=== PATIENT | male | born 1955 | race Caucasian/White ===

== ENCOUNTER 2017-12-27 08:07 | Inpatient (IN) | payer OTHER ==
[~2017-12-27] VITALS: Ht 160 cm; Wt 88.9 kg
[~2017-12-27 08:07] MED LIST: DICL75TA PO; LUBI24CA5 PO; OMEP40CA37 PO; TEST200V3 IM
[2017-12-27] MEDS ORDERED: ACETAMINOPHEN ES 500 MG TABLET ONE (08:23)
[2017-12-27] MEDS ORDERED: ACETAMINOPHEN ES 500 MG TABLET PO ONE (08:30)
[2017-12-27] MEDS ORDERED: IV NS 0.9% 500 ML BAG IV ONE (08:30)
[2017-12-27] MEDS ORDERED: ASPIRIN 325 MG TABLET PO ONE (08:30)
[2017-12-27 08:33] LABS: ABG BASE EXCESS 3.9 mmol/L; ABG OXYGEN SATURATION 91.8 % (92.0-98.5); ABG PCO2 42.5 mmHg (35.0-45.0); ABG PH 7.443 (7.350-7.450); ABG PO2 62.9 mmHg (75.0-100.0); AaDO2 35.9 mmHg; COHb 1.3 % (0.5-1.5); MetHb 0.5 % (0.0-1.5); O2Hb 90.1 % (94.0-97.0); SITE, ABG Left Radial; VENT MODE, BG RA
--- NOTE | 2017-12-27 08:35 | NUR ---
RT AT FOR ABG.
--- NOTE | 2017-12-27 08:40 | NUR ---
MD AT FOR EVAL. ORDERED PT TO BE ON OXYGEN VIA NC.
--- NOTE | 2017-12-27 08:46 | NUR ---
IV ACCESS STARTED. BLOOD DRAWN FOR LABS. MEDICATED ORDERED. LEFT URINAL AT BS FOR PT USE.
[2017-12-27] MEDS ORDERED: ASPIRIN 325 MG TABLET ONE (08:48)
[2017-12-27 08:51] LABS: BASOPHILS # (AUTO) 0.1 /CMM (0.0-0.2); BASOPHILS % (AUTO) 1.1 % (0.0-2.0); EOSINOPHILS % (AUTO) 2.1 % (0.0-6.0); HEMATOCRIT 42 % (39-51); HEMOGLOBIN 13.5 g/dL (13.5-17.5); LYMPHOCYTES # (AUTO) 0.7 /CMM (0.8-4.8); LYMPHOCYTES % (AUTO) 8.9 % (20.0-44.0); MEAN CORPUSCULAR HEMOGLOBIN 29 PG (26.0-33.0); MEAN CORPUSCULAR HGB CONC 33 g/dl (31.0-36.0); MEAN CORPUSCULAR VOLUME 90 fL (80-96); MONOCYTES # (AUTO) 0.4 /CMM (0.1-1.30); MONOCYTES % (AUTO) 5.1 % (2.0-12.0); NEUTROPHILS # (AUTO) 6.2 /CMM (1.8-8.9); NEUTROPHILS % (AUTO) 82.8 % (43.0-81.0); PLATELET COUNT (AUTO) 211 /CMM (150-450); RDW COEFFICIENT OF VARIATION 28.8 (11.5-15.0); RED BLOOD CELL COUNT(AUTO) 4.62 MIL/uL (4.5-6.0); WHITE BLOOD COUNT (AUTO) 7.5 K/uL (4.3-11.0)
[2017-12-27 08:55] LABS: CALCIUM, SERUM 9.3 mg/dL (8.5-10.1); CREATININE 1.1 mg/dL (0.6-1.3); POTASSIUM 3.5 mmol/L (3.5-5.1)
--- NOTE | 2017-12-27 08:55 | NUR ---
PT TAKEN TO CT.
[2017-12-27 09:00] LABS: ALBUMIN 3.6 g/dL (3.4-5.0); BILIRUBIN,DIRECT 0.3 mg/dL (0.0-0.2); BILIRUBIN,TOTAL 0.9 mg/dL (0.2-1.0); TOTAL PROTEIN, SERUM 7.8 g/dL (6.4-8.2)
[2017-12-27 09:09] LABS: TROPONIN I 0.023 ng/mL (0.00-0.056)
--- NOTE | 2017-12-27 09:23 | NUR ---
[facility] PAGED
[2017-12-27] MEDS ORDERED: OXYC-128 PO (09:44)
[2017-12-27] MEDS ORDERED: OXYC5CAP18 PO (09:44)
[2017-12-27] MEDS ORDERED: ZOLP5TAB2 PO (09:44)
[2017-12-27] MEDS ORDERED: FURO-144 PO (09:44)
[2017-12-27] MEDS ORDERED: METO5TAB7 PO (09:44)
[2017-12-27] MEDS ORDERED: DOCU-270 PO (09:44)
[2017-12-27] MEDS ORDERED: PANT40TA2 PO (09:44)
[2017-12-27] MEDS ORDERED: METH500T PO (09:45)
--- NOTE | 2017-12-27 10:20 | NUR ---
REPORT GIVEN TO MIMA BECERRA FOR TELE [phone].
[2017-12-27 10:45] VITALS: BP 133/70
[2017-12-27] MEDS ORDERED: HYDROCODONE/APAP 5/325MG 1 EACH TABLET PO PRN (11:00)
[2017-12-27] MEDS ORDERED: MAG HYDROX/AL HYDROX/SIMETH 30 ML UDC PO PRN (11:00)
[2017-12-27] MEDS ORDERED: Z GUARD REMEDY 2 OZ OINT TP PRN (11:00)
[2017-12-27] MEDS ORDERED: MAGNESIUM HYDROXIDE 30 ML UDC PO PRN (11:00)
[2017-12-27] MEDS ORDERED: ZOLPIDEM TARTRATE 5 MG TABLET PO PRN (11:00)
[2017-12-27] MEDS ORDERED: ACETAMINOPHEN 325 MG TABLET PO PRN (11:00)
[2017-12-27] MEDS ORDERED: ONDANSETRON HCL/PF 4 MG/2 ML VIAL IVP PRN (11:00)
[2017-12-27 12:00] VITALS: BP 129/70
--- NOTE | 2017-12-27 12:39 | NUR ---
HERNAN NOTES/ORTHOSTATIC BP LYING 129/70 HR 68 SITTING 142/76 HR 59 STANDING UNABLE PT UNSTEADY GAIT, UNABLE TO STAND LONG ENOUGH FOR BP TO BE TAKEN Addendum: 12/27/17 at 1241 by MIMA NEWSOME RN Amended: Links added.
[2017-12-27 13:32] LABS: THYROID STIMULATING HORMONE 0.923 uIU/mL (0.358-3.74)
--- NOTE | 2017-12-27 13:45 | NUR ---
RN NOTES/ADMITTING RN NOTES PATIENT RECEIVED FROM ER VIA GURNEY, AWAKE ALERT AND VERBALLY RESPONSIVE, ABLE TO STATE FULL NAME AND DATE OF , KNOWN HE IS IN THE HOSPITAL, AND ABLE TO TELL THE TIME, NOTED WITH FORGETFULNESS. RESPIRATIONS EVEN AND UNLABORED, OXYGEN VIA NC 2LPM PRN FOR EASE OF BREATHING. DENIES ANY PAIN OR DISCOMFORT. DR. CONWAY AWARE PT IS IN UNIT, WILL CARRY OUT ADMITTING ORDERS. IV ACCESS TO RFA 20G PATENT AND INTACT NO REDNESS OR INFILTRATION NOTED. NOTED WITH UNEQUAL PUPILS, AWARE. ORIENTED PT TO ROOM AND UNIT AND USE OF CALL LIGHT AND TO CALL WHEN ASSISTANCE IS NEEDED, WILL CONTINUE TO MONITOR
--- NOTE | 2017-12-27 14:30 | NUR ---
RN NOTES/MD VISIT SEEN AND EXAMINED BY DR. CONWAY NOTIFIED OF UNEQUAL PUPILS, PER MD PT HAVING HYDROCEPHALUS AND WILL HAVE NEURO CONSULT,MD WILL INFORM DR. WU. PT WITH EQUAL STRENGTH TO [place], WILL HAVE PT AND OT EVALS, WILL CONTINUE TO MONITOR
[2017-12-27 16:00] VITALS: BP 136/83
[2017-12-27] MEDS: DOCUSATE SODIUM 100 MG CAPSULE PO SCH (16:37)
[2017-12-27] MEDS: oxyCODONE IR immediate release 5 MG PO SCH (16:38)
[2017-12-27] MEDS: DICLOFENAC SODIUM 25 MG TABLET.DR PO SCH (16:38)
[2017-12-27] MEDS: METHOCARBAMOL (500MG) 500 MG TABLET PO SCH (16:40)
[2017-12-27] MEDS: IV NS 0.9% 1,000 ML IV PRN (17:50)
--- NOTE | 2017-12-27 18:59 | NUR ---
RN CLOSING NOTES PATIENT AWAKE ALERT AND VERBALLY RESPONSIVE, ABLE TO STATE FULL NAME AND DATE OF , KNOWN HE IS IN THE HOSPITAL, AND ABLE TO TELL THE TIME, NOTED WITH FORGETFULNESS. RESPIRATIONS EVEN AND UNLABORED, OXYGEN VIA NC 2LPM PRN FOR EASE OF BREATHING. DENIES ANY PAIN OR DISCOMFORT.IV ACCESS TO RFA 20G PATENT AND INTACT NO REDNESS OR INFILTRATION NOTED. NOTED WITH UNEQUAL PUPILS, MD AWARE. ORIENTED PT TO ROOM AND UNIT AND USE OF CALL LIGHT AND TO CALL WHEN ASSISTANCE IS NEEDED, WILL CONTINUE TO MONITOR AND ENDORSE TO NEXT SHIFT FOR CONTINUITY OF CARE
[2017-12-27 19:28] VITALS: BP 126/73
--- NOTE | 2017-12-27 19:30 | NUR ---
RN NOTES RECEIVED PT. AWAKE ON BED, A/OX2-3, SR WITH BBB ON TELE MONITOR HR-81, DENIES PAIN, NO SOB, CALL LIGHT WITHIN REACH, [id number], CONTINUE TO MONITOR
[2017-12-27] MEDS: ALBUTEROL FS 2.5 MG/3 ML VIAL.NEB NEB SCH (20:47)
[2017-12-28] MEDS: ALBUTEROL FS 2.5 MG/3 ML VIAL.NEB NEB SCH ×4 (01:40→19:14)
[2017-12-28 04:49] VITALS: BP 132/80
[2017-12-28 06:11] VITALS: BP_SYST 121; BP_SYST 129; BP_DIAS 75; BP_DIAS 81
[2017-12-28 06:31] LABS: BASOPHILS % (AUTO) 0.4 % (0.0-2.0); EOSINOPHILS % (AUTO) 5.3 % (0.0-6.0); HEMATOCRIT 37 % (39-51); HEMOGLOBIN 12.3 g/dL (13.5-17.5); LYMPHOCYTES # (AUTO) 0.9 /CMM (0.8-4.8); LYMPHOCYTES % (AUTO) 11.8 % (20.0-44.0); MEAN CORPUSCULAR HEMOGLOBIN 30 PG (26.0-33.0); MEAN CORPUSCULAR HGB CONC 33 g/dl (31.0-36.0); MEAN CORPUSCULAR VOLUME 90 fL (80-96); MONOCYTES # (AUTO) 0.7 /CMM (0.1-1.30); NEUTROPHILS # (AUTO) 5.2 /CMM (1.8-8.9); NEUTROPHILS % (AUTO) 72.5 % (43.0-81.0); PLATELET COUNT (AUTO) 202 /CMM (150-450); RDW COEFFICIENT OF VARIATION 28.6 (11.5-15.0); RED BLOOD CELL COUNT(AUTO) 4.14 MIL/uL (4.5-6.0); WHITE BLOOD COUNT (AUTO) 7.2 K/uL (4.3-11.0)
--- NOTE | 2017-12-28 06:42 | NUR ---
RN NOTES AWAKE, DENIES PAIN, MORNING CARE RENDERED, PT. NEEDS ATTENDED
[2017-12-28 06:47] LABS: CALCIUM, SERUM 8.6 mg/dL (8.5-10.1); CREATININE 1.2 mg/dL (0.6-1.3); MAGNESIUM 1.6 mg/dL (1.8-2.4); PHOSPHORUS 3.5 mg/dL (2.5-4.9); POTASSIUM 3.3 mmol/L (3.5-5.1)
[2017-12-28] MEDS: IV NS 0.9% 1,000 ML IV PRN (07:00)
--- NOTE | 2017-12-28 07:36 | NUR ---
RN OPENING NOTES PATIENT AWAKE ALERT AND VERBALLY RESPONSIVE, ABLE TO MAKE NEEDS KNOWN, NOTED WITH FORGETFULNESS. RESPIRATIONS EVEN AND UNLABORED, OXYGEN VIA NC 2LPM PRN FOR EASE OF BREATHING. DENIES ANY PAIN OR DISCOMFORT.IV ACCESS TO RFA 20G PATENT AND INTACT NO REDNESS OR INFILTRATION NOTED. NOTED WITH UNEQUAL PUPILS, MD AWARE. ORIENTED PT TO ROOM AND UNIT AND USE OF CALL LIGHT AND TO CALL WHEN ASSISTANCE IS NEEDED, WILL CONTINUE TO MONITOR
[2017-12-28 08:00] VITALS: BP 133/75
[2017-12-28] MEDS: oxyCODONE IR immediate release 5 MG PO SCH ×2 (08:15→16:24)
[2017-12-28] MEDS: FUROSEMIDE 40 MG TABLET PO SCH (08:15)
[2017-12-28] MEDS: METHOCARBAMOL (500MG) 500 MG TABLET PO SCH ×2 (08:15→16:23)
[2017-12-28] MEDS: DOCUSATE SODIUM 100 MG CAPSULE PO SCH ×2 (08:15→16:23)
[2017-12-28] MEDS: PANTOPRAZOLE 40 MG TABLET.DR PO SCH (08:15)
[2017-12-28] MEDS: DICLOFENAC SODIUM 25 MG TABLET.DR PO SCH ×2 (08:19→16:23)
[2017-12-28 08:54] VITALS: BP 133/75
[2017-12-28] MEDS ORDERED: POTASSIUM CHLORIDE 20 MEQ TAB.PRT.SR PO SCH (10:30)
[2017-12-28 10:56] LABS: APPEARANCE,URINE CLEAR (CLEAR); BILIRUBIN,URINE NEGATIVE (NEGATIVE); BLOOD, URINE 2+ Ery/uL (NEGATIVE); COLOR,URINE YELLOW (YELLOW); KETONES,URINE NEGATIVE (NEGATIVE); LEUKOCYTE ESTERASE ,URINE NEGATIVE (NEGATIVE); NITRITE, URINE NEGATIVE (NEGATIVE); PROTEIN,URINE NEGATIVE (NEGATIVE); UGLUCOSE NEGATIVE (NEGATIVE)
[2017-12-28 11:12] LABS: BACTERIA,URINE Rare /HPF (None Seen); WBC,URINE 0-2 /HPF (0-3)
[2017-12-28 11:13] LABS: SQUAMOUS EPITHELIAL CELL,UR Rare /HPF (None Seen)
--- NOTE | 2017-12-28 13:16 | NUR ---
RN NOTES PT REFUSING [facility] AT THIS TIME WANTS TO TAKE "LATER" WILL OFFER AGAIN AND CONTINUE TO MONITOR
[2017-12-28] MEDS: Magnesium 1GM/D5W 100ML PREMIX 100 ML IV SCH ×2 (13:23→16:23)
[2017-12-28] MEDS ORDERED: GADODIAMIDE 5 MMOL/10 ML VIAL IJ ONE (13:30)
[2017-12-28] MEDS ORDERED: POTASSIUM CHLORIDE 20 MEQ TAB.PRT.SR PO ONE (13:30)
[2017-12-28] MEDS: SOD FERRIC GLUC 125 MG in IV NS 0.9% 100 ML IV SCH (15:09)
--- NOTE | 2017-12-28 15:35 | NUR ---
RN NOTES/MRI BRAIN PER RADIOLOGIST PT WITH COMMUNICATING HYDROCEPHALUS MADE DR. CONWAY UNABLE TO CONTACT DR. WU, DR. CONWAY AWARE,NO NEW ORDERS AT THIS TIME WILL CONTINUE TO MONITOR
[2017-12-28 16:00] VITALS: BP 144/83
--- NOTE | 2017-12-28 18:55 | NUR ---
RN CLOSING NOTES PATIENT AWAKE ALERT AND VERBALLY RESPONSIVE, ABLE TO MAKE NEEDS KNOWN, NOTED WITH FORGETFULNESS. RESPIRATIONS EVEN AND UNLABORED, OXYGEN VIA NC 2LPM PRN FOR EASE OF BREATHING. DENIES ANY PAIN OR DISCOMFORT.IV ACCESS TO RFA 20G PATENT AND INTACT NO REDNESS OR INFILTRATION NOTED. NOTED WITH UNEQUAL PUPILS,NEUROLOGIST AND MD AWARE. ORIENTED PT TO ROOM AND UNIT AND USE OF CALL LIGHT AND TO CALL WHEN ASSISTANCE IS NEEDED, WILL CONTINUE TO MONITOR AND ENDORSE TO NEXT SHIFT FOR CONTINUITY OF CARE
--- NOTE | 2017-12-28 19:32 | NUR ---
MS RN OPENING NOTES RECEIVED PT AWAKE ALERT X 2-3 WITH INTERMITTENT CONFUSION PER AM RN REPORT. VERBALLY RESPONSIVE, ABLE TO MAKE NEEDS KNOWN, NOTED WITH FORGETFULNESS. RESPIRATIONS EVEN AND UNLABORED, OXYGEN VIA NC 2LPM PRN FOR EASE OF BREATHING. DENIES ANY PAIN OR DISCOMFORT. IV ACCESS TO RAC, PATENT AND INTACT, RUNNING WITH IVF ORDERED. NOTED WITH UNEQUAL PUPILS, MD AWARE. ORIENTED PT TO ROOM AND UNIT AND USE OF CALL LIGHT AND TO CALL WHEN ASSISTANCE IS NEEDED, VERBALIZED UNDERSTANDING @ THIS TIME. BED ALARM ON. WILL CONTINUE TO MONITOR CLOSELY.
[2017-12-28 20:00] VITALS: BP 141/85
--- NOTE | 2017-12-28 21:00 | NUR ---
Met with patient,he is lethargic and confused, unable to follow interaction. location manager found patient's mother phone number on his contact list. Spoke with patient mother Verenice [phone], stated patient lives in an apartment with roommates. Prior to admission, he was ambulatory and was driving. Mother not aware of any DME at home. His mother stated that she will be unable to take care of the patient and has no other support at home. Awaiting MRI brain to r/o CVA. Patient might need SNF placement when discharge. Addendum: 12/28/17 at 2101 by MICAH GARNER RN Amended: Links added.
[2017-12-29] MEDS: IV NS 0.9% 1,000 ML IV PRN ×2 (00:08→18:50)
[2017-12-29] MEDS: ALBUTEROL FS 2.5 MG/3 ML VIAL.NEB NEB SCH ×4 (00:35→19:10)
--- NOTE | 2017-12-29 02:11 | NUR ---
MS RN NOTE PT NOTED TO BE SLEEPING COMFORTABLY @ THIS TIME. NO MEL NOTED. ON O2 @ 2 LPM VIA NC. MONITORING CLOSELY.
[2017-12-29 06:00] LABS: BASOPHILS % (AUTO) 0.2 % (0.0-2.0); EOSINOPHILS % (AUTO) 4.1 % (0.0-6.0); HEMATOCRIT 38 % (39-51); HEMOGLOBIN 12.6 g/dL (13.5-17.5); LYMPHOCYTES # (AUTO) 0.6 /CMM (0.8-4.8); LYMPHOCYTES % (AUTO) 8.1 % (20.0-44.0); MEAN CORPUSCULAR HEMOGLOBIN 30 PG (26.0-33.0); MEAN CORPUSCULAR HGB CONC 33 g/dl (31.0-36.0); MEAN CORPUSCULAR VOLUME 90 fL (80-96); MONOCYTES # (AUTO) 0.7 /CMM (0.1-1.30); MONOCYTES % (AUTO) 9.2 % (2.0-12.0); NEUTROPHILS # (AUTO) 6.2 /CMM (1.8-8.9); NEUTROPHILS % (AUTO) 78.4 % (43.0-81.0); PLATELET COUNT (AUTO) 215 /CMM (150-450); RDW COEFFICIENT OF VARIATION 28.6 (11.5-15.0); RED BLOOD CELL COUNT(AUTO) 4.25 MIL/uL (4.5-6.0); WHITE BLOOD COUNT (AUTO) 7.9 K/uL (4.3-11.0)
[2017-12-29 06:19] LABS: CALCIUM, SERUM 8.5 mg/dL (8.5-10.1); CREATININE 1.2 mg/dL (0.6-1.3); MAGNESIUM 1.8 mg/dL (1.8-2.4); PHOSPHORUS 3.5 mg/dL (2.5-4.9); POTASSIUM 3.5 mmol/L (3.5-5.1)
--- NOTE | 2017-12-29 06:35 | NUR ---
MS RN CLOSING NOTES PT SLEPT WELL @ NIGHT, A & O X 2-3, VERBALLY RESPONSIVE. NOTED WITH FORGETFULNESS. RESP EVEN AND UNLABORED, OXYGEN VIA NC 2LPM PRN FOR EASE OF BREATHING. NO S/S OF PAIN NOTED. IV ACCESS TO RAC, PATENT AND INTACT, RUNNING WITH IVF ORDERED. SAFETY MEASURES IN PLACE. NO MEL NOTED. BED ALARM ON. CALL LIGHT WITHIN REACH. WILL ENDORSE TO AM RN FOR CONTINUITY OF CARE.
--- NOTE | 2017-12-29 07:10 | NUR ---
MS RN NOTES PATIENT IN BED EYES CLOSED, AROUSABLE, RESPONSIVE TO VERBAL AND TACTILE STIMULI, NO ACUTE DISTRESS NOTED. BREATHING UNLABORED. NO SOB NOTED. DENIED ANY PAIN, NO FACIAL GRIMACING NOTED. IV ACCESS PATENT AND INTACT, NO REDNESS OR SWELLING NOTED. SAFETY MEASURES IN PLACE. CALL LIGHT WITHIN REACH. WILL CONTINUE TO MONITOR ACCORDINGLY.
[2017-12-29 08:00] VITALS: BP 133/74
[2017-12-29] MEDS: FUROSEMIDE 40 MG TABLET PO SCH (08:24)
[2017-12-29] MEDS: METHOCARBAMOL (500MG) 500 MG TABLET PO SCH ×2 (08:24→17:38)
[2017-12-29] MEDS: PANTOPRAZOLE 40 MG TABLET.DR PO SCH (08:24)
[2017-12-29] MEDS: DOCUSATE SODIUM 100 MG CAPSULE PO SCH ×2 (08:24→17:38)
[2017-12-29] MEDS: DICLOFENAC SODIUM 25 MG TABLET.DR PO SCH ×2 (08:26→17:38)
[2017-12-29] MEDS: oxyCODONE IR immediate release 5 MG PO SCH ×2 (08:52→17:00)
--- NOTE | 2017-12-29 09:59 | NUR ---
MS RN NOTES OXY IR NOT GIVEN PATIENT CONFUSED.
[2017-12-29] MEDS: SOD FERRIC GLUC 125 MG in IV NS 0.9% 100 ML IV SCH (15:30)
[2017-12-29 16:00] VITALS: BP 134/83
--- NOTE | 2017-12-29 17:00 | NUR ---
MS RN NOTES OXY IR NOT GIVEN PATIENT CONFUSED.
--- NOTE | 2017-12-29 19:00 | NUR ---
MS RN NOTES PATIENT IN BED EYES CLOSED, AROUSABLE, RESPONSIVE TO VERBAL AND TACTILE STIMULI, NO ACUTE DISTRESS NOTED. BREATHING UNLABORED. NO SOB NOTED. DENIED ANY PAIN, NO FACIAL GRIMACING NOTED. IV ACCESS PATENT AND INTACT, NO REDNESS OR SWELLING NOTED. DUE MEDICATIONS GIVEN, NO ASE NOTED. KEPT CLEAN, DRY AND COMFORTABLE. NEEDS ATTENDED AND ANTICIPATED. SAFETY MEASURES IN PLACE. CALL LIGHT WITHIN REACH. ENDORSED TO NIGHT NURSE FOR CONTINUITY OF CARE.
[2017-12-29 20:00] VITALS: BP 145/79
--- NOTE | 2017-12-29 20:00 | NUR ---
Pt. in bed resting, awake, oriented x 2-3 with intermittent periods of confusion. Pt. on 2L/NC continuous, no s/s of sob or dyspnea. Pt. lungs sounds are diminished @ the bases, no s/s of sob or dyspnea, breathing regular, symmetrical and unlabored. HOB up and oriented pt. to the room and unit initially, making pt. oriented to the room/unit. bowel sounds present, incontinent of bladder and IVF of NS @75 ml./hr connected to the R AC G #continuously. Pt. presently has Left elbow scabs, Right feet and the Right Lower leg and the right foot wound. No s/s of pain or discomfort. Pt. provided bedside nsg. care and assistance with the activities of daily living(adl's), hygiene and elimination needs. Keep pt. informed of his present health care needs and assisted pt. @ the bedside. Keep pt. safe, warm, dry, comfortable in bed. Assessment done and completed @ around this time.
[2017-12-30] MEDS: ALBUTEROL FS 2.5 MG/3 ML VIAL.NEB NEB SCH ×4 (01:30→20:05)
--- NOTE | 2017-12-30 02:19 | NUR ---
TRIAGE THERAPIST IN ATTENDANCE TO CRITICAL PT.
[2017-12-30] MEDS: IV NS 0.9% 1,000 ML IV PRN ×2 (06:30→21:29)
[2017-12-30] MEDS: PANTOPRAZOLE 40 MG TABLET.DR PO SCH (06:31)
[2017-12-30 08:00] VITALS: BP 139/70
[2017-12-30] MEDS: FUROSEMIDE 40 MG TABLET PO SCH (08:30)
[2017-12-30] MEDS: DOCUSATE SODIUM 100 MG CAPSULE PO SCH ×2 (08:30→17:00)
[2017-12-30] MEDS: METHOCARBAMOL (500MG) 500 MG TABLET PO SCH (08:30)
[2017-12-30] MEDS: DICLOFENAC SODIUM 25 MG TABLET.DR PO SCH ×2 (08:31→17:00)
[2017-12-30] MEDS: oxyCODONE IR immediate release 5 MG PO SCH (09:00)
--- NOTE | 2017-12-30 09:59 | NUR ---
MS RN NOTES OXY IR NOT GIVEN PATIENT CONFUSED.
[2017-12-30] MEDS: SOD FERRIC GLUC 125 MG in IV NS 0.9% 100 ML IV SCH (14:34)
[2017-12-30 16:00] VITALS: BP 149/84
--- NOTE | 2017-12-30 17:30 | NUR ---
MS RN NOTES PATIENT NOTED TO BE SLEEPING MORE, MORE LETHARGIC TODAY, AROUSABLE, COHERENT, RESPONSIVE TO VERBAL AND TACTILE STIMULI, NODS HEAD AND ANSWER 1 -2 WORDS WHEN ASKED, NOTIFIED DR HAMMOND WITH NEW ORDERS TO CHANGE ROBAXIN AND OXY IR TO BID PRN. NOTED AND CARRIED OUT. MADE AWARE WELL OF THE FINAL URINE CULTURE RESULTS, NO NEW ORDERS MADE AT THIS TIME. WILL CONTINUE TO MONITOR PATIENT.
[2017-12-30] MEDS ORDERED: oxyCODONE IR immediate release 5 MG PO PRN (18:00)
[2017-12-30] MEDS ORDERED: METHOCARBAMOL (500MG) 500 MG TABLET PO PRN (18:00)
--- NOTE | 2017-12-30 18:00 | NUR ---
MS RN NOTES HELD HARINI DUE, PATIENT LETHARGIC, AROUSABLE, COHERENT, RESPOND TO VERBAL AND TACTILE STIMULI. NODS HEAD TO QUESTIONS, ANSWER IN 1-2 WORDS. NO ACUTE DISTRESS NOTED. VITAL SIGNS STABLE. BREATHING UNLABORED, NO SOB NOTED. OPENS EYES. NO FACIAL GRIMACING NOTED, DENIED ANY PAIN. WILL CONTINUE TO MONITOR ACCORDINGLY.
--- NOTE | 2017-12-30 19:00 | NUR ---
MS RN NOTES PATIENT IN BED EYES CLOSED AROUSABLE, COHERENT, RESPONSIVE TO VERBAL AND TACTILE STIMULI, NODS HEAD AND ANSWER IN FEW WORDS WHEN ASKED.NO ACUTE DISTRESS NOTED, BREATHING UNLABORED. NO SOB NOTED. IV ACCESS PATENT AND INTACT, NO REDNESS OR SWELLING NOTED. NEEDS ATTENDED AND ANTICIPATED. SAFETY MEASURES IN PLACE. CALL LIGHT WITHIN IN REACH. ENDORSED TO NIGHT NURSE FOR CONTINUITY OF CARE.
--- NOTE | 2017-12-30 19:45 | NUR ---
MS RN NOTES Report received at bedside around 1919. Patient received in bed, resting, lethargic (per endorsement as well). SpO2 @95% RA. IV on right AC with NS @75ml/hr noted. Not in any type of distress. No moaning or face grimacing noted. HOB elevated. BS checked = 76. Safety measures in place. Will continue to monitor and assess patient
[2017-12-30 20:00] VITALS: BP 142/82
[2017-12-31] MEDS: ALBUTEROL FS 2.5 MG/3 ML VIAL.NEB NEB SCH ×3 (01:23→13:29)
[2017-12-31 01:27] VITALS: BP 151/80
--- NOTE | 2017-12-31 05:21 | NUR ---
MS RN NOTES Patient remained in bed, lethargic. On oxygen therapy @1LPM via nasal cannula with no SOB/labored breathing noted. HOB elevated. On routine breathing tx. IV on right antecubital #20g: patent and intact with NS @75ml/hr running. Routine Oxy IR and Robaxin discontinued and changed to PRN. No moaning or facial grimacing noted. Not in any type of distress. Suction orally for secretion to prevent from aspiration. Turned and repositioned every two hours. Safety measures in place. Bed in lowest position with bed alarm on and call light within reach. Will continue to monitor and assess patient.
--- NOTE | 2017-12-31 05:32 | NUR ---
MS RN NOTES Patient in bed, resting comfortably, easily aroused. Verbally responsive. Denies any pain. No SOB noted. Not in any type of distress. Possible discharge today. POST-DISCHARGE INSTRUCTIONS: follow up with Dr. Holm after discharge and encourage to follow up with teAnaresh needs provided and met. Safety measures in place. Bed in lowest position with call light within reach. WIll continue to monitor and assess. Addendum: 12/31/17 at 0537 by CJ AMOS RN and encourage to follow up with therapist (pls see Dr. Johnson's notes). Continue with RT and PT per Dr. Restrepo. All needs provided and met. Safety measures in place. Bed in lowest position with call light within reach. WIll continue to monitor and assess.
--- NOTE | 2017-12-31 07:26 | NUR ---
MS RN CLOSING NOTES All needs provided and met. no changes noted or reported. Safety measures in place. Report endorsed to HERNAN Ernandez.
[2017-12-31] MEDS: PANTOPRAZOLE 40 MG TABLET.DR PO SCH (07:30)
--- NOTE | 2017-12-31 07:30 | NUR ---
MS RN NOTES RECEIVED PATIENT IN BED LETHARGIC. NO SOB OR ACUTE DISTRESS NOTED. PERIPHERAL IV INTACT PATENT. DR. HAMMOND MADE AWARE WILL EVALUATE PATIENT. BED IN LOW LOCKED POSITION. CALL LIGHT WITHIN REACH. WILL CONTINUE TO MONITOR.
[2017-12-31 08:00] VITALS: BP 140/86
--- NOTE | 2017-12-31 08:30 | NUR ---
MS RN NOTES PATIENT SEEN AND EVALUATED BY DR. HAMMOND ORDERS FOR STAT AGB. CBC CMP NOTED AND CARRIED OUT.
[2017-12-31 08:41] LABS: ABG BASE EXCESS 3.2 mmol/L; ABG OXYGEN SATURATION 96.5 % (92.0-98.5); ABG PCO2 40.7 mmHg (35.0-45.0); ABG PH 7.447 (7.350-7.450); ABG PO2 90.6 mmHg (75.0-100.0); COHb 1.8 % (0.5-1.5); MetHb 0.7 % (0.0-1.5); O2Hb 94.1 % (94.0-97.0); SITE, ABG Left Radial; VENT MODE, BG 2L NC
[2017-12-31] MEDS: DICLOFENAC SODIUM 25 MG TABLET.DR PO SCH (09:00)
[2017-12-31] MEDS: FUROSEMIDE 40 MG TABLET PO SCH (09:00)
[2017-12-31] MEDS: DOCUSATE SODIUM 100 MG CAPSULE PO SCH (09:00)
--- NOTE | 2017-12-31 09:00 | NUR ---
MS RN NOTES NOTIFIED DR. HAMMOND OF ABG RESULTS NO NEW ORDERS GIVEN.
[2017-12-31 09:25] LABS: BASOPHILS % (AUTO) 0.2 % (0.0-2.0); EOSINOPHILS % (AUTO) 0.2 % (0.0-6.0); HEMATOCRIT 43 % (39-51); HEMOGLOBIN 14.1 g/dL (13.5-17.5); LYMPHOCYTES # (AUTO) 0.5 /CMM (0.8-4.8); LYMPHOCYTES % (AUTO) 4.8 % (20.0-44.0); MEAN CORPUSCULAR HEMOGLOBIN 30 PG (26.0-33.0); MEAN CORPUSCULAR HGB CONC 33 g/dl (31.0-36.0); MEAN CORPUSCULAR VOLUME 91 fL (80-96); MONOCYTES # (AUTO) 0.8 /CMM (0.1-1.30); MONOCYTES % (AUTO) 7.8 % (2.0-12.0); NEUTROPHILS # (AUTO) 9.4 /CMM (1.8-8.9); PLATELET COUNT (AUTO) 227 /CMM (150-450); RDW COEFFICIENT OF VARIATION 26.9 (11.5-15.0); RED BLOOD CELL COUNT(AUTO) 4.73 MIL/uL (4.5-6.0); WHITE BLOOD COUNT (AUTO) 10.8 K/uL (4.3-11.0)
[2017-12-31 09:39] LABS: ALBUMIN 2.8 g/dL (3.4-5.0); BILIRUBIN,DIRECT 1.3 mg/dL (0.0-0.2); BILIRUBIN,TOTAL 2.4 mg/dL (0.2-1.0); CALCIUM, SERUM 8.7 mg/dL (8.5-10.1); MAGNESIUM 1.4 mg/dL (1.8-2.4); PHOSPHORUS 3.1 mg/dL (2.5-4.9); POTASSIUM 3.5 mmol/L (3.5-5.1); TOTAL PROTEIN, SERUM 7.2 g/dL (6.4-8.2)
--- NOTE | 2017-12-31 10:00 | NUR ---
RN [facility] TRANSFER NOTES RECEIVED REPORT AND PATIENT FROM MED SURG NURSE CHAU, PATIENT A&O X1 MOANS AND GROANS WHEN DEEP PAIN STIMULI, VS 100.2, RESP 20 HR 74, O2 98% ON ROOM AIR BLOOD PRESSURE 134/76, WILL PROVIDE ICE PACKS FOR PATIENT, ON 1L NASAL CANULA SATURATING ABOVE 95%, NO SOB OR ACUTE DISTRESS NOTED. LETHARGIC AT THIS TIME, DIAPER PLACED ON PATIENT, ON LOADER WITH SINUS RHYTHM OCCAS PVCS, BBB WITH HEART RATE 77, RIGHT AC 20 G IV SITE INTACT AND PATENT NO INFILTRATION NOTED, PATIENT WILL BE NPO AT THIS TIME SINCE LETHARGIC, NARCAN GIVEN AT BEDSIDE, NO CHANGES NOTED WITH MENTAL STATUS, ALL SAFETY MEASURES INITIATED, WILL CONTINUE TO MONITOR.
--- NOTE | 2017-12-31 10:00 | NUR ---
MS RN NOTES PATIENT SEEN BY DR. WU ORDERS FOR STAT CT AND TRANSFER TO [facility].
[2017-12-31] MEDS ORDERED: NALOXONE HCL 0.4 MG/ML AMPUL IV STA (10:17)
[2017-12-31] MEDS ORDERED: NALOXONE HCL 0.4 MG/ML AMPUL IV PRN (10:30)
--- NOTE | 2017-12-31 10:30 | NUR ---
MS RN NOTES PATIENT TAKEN TO RADIOLOGY FOR STAT HEAD CT PER DR. WU ORDERS.
--- NOTE | 2017-12-31 10:45 | NUR ---
MS RN NOTES TRANSFERRED PATIENT TO [facility] REPORT GIVEN TO ДМИТРИЙ AT BEDSIDE.
--- NOTE | 2017-12-31 11:24 | NUR ---
RN [facility] NOTES SPOKE WITH RADIOLOGY AND CT SCAN CONFIRMED ACUTE HYDROCEPHALUS. NOTIFIED DR HAMMOND AND DR PRINCE, JOHNY SPOKE WITH DR GOMEZ FOR NEUROSURGEON CONSULT.
[2017-12-31 12:00] VITALS: BP 134/76
[2017-12-31] MEDS: Magnesium 1GM/D5W 100ML PREMIX 100 ML IV SCH ×2 (12:18→13:45)
[2017-12-31 12:39] VITALS: BP 134/76
[2017-12-31] MEDS: SOD FERRIC GLUC 125 MG in IV NS 0.9% 100 ML IV SCH ×2 (14:00→15:53)
--- NOTE | 2017-12-31 16:40 | NUR ---
RN [facility] ENDING NOTES PATIENT TRANSFER TO ICU [facility], A&O X0 OBTUNDED LETHARGIC SINCE 10 AM, ON 1-2 L NC SAT ABOVE 97%, VS 119/70, RES 28, HR 75, O2 97% , NO ACUTE CHANGES NOTED STILL LETHARGI, CONFUSED, DROWSY, BED BATH PROVIDED DIAPER CHANGE COMPLETED. NO BELONGINGS NOTED, RIGHT AC 20G IV INTACT AND PATENT SALINE LOCK NO INFILTRATION NOTED, ALL EXIT CARE LABS AND DC PAPERWORK COMPLETED AND PLACED IN CHART, SIGNED BY CHARGE NURSE, REPORT GIVEN TO RUTHANN CHARGE NURSE [phone] GOING TO ICU ROOM 4525, PATIENT LEFT VIA AMBULANCE, PT HAD NO ACUTE CHANGES NOTED, TELE BOX REMOVED, ID BAND REMOVED, ALL DUE MEDS GIVEN EXCEPT FOR FERRLICIT, SPOKE WITH FRIEND RIO [phone] AND TOLD HIM [facility] WILL LEAVE TO [facility] TODAY, NPO AT THIS TIME SINCE LETHARGIC AND ASPIRATION PRECAUTION, CT HEAD CD PLACED IN BOOK AND SENT WITH PATIENT, CONTINUITY OF HIGHER LEVEL OF CARE AT [facility].
== END 2017-12-31 17:06 | disposition short-term general hospital (02) | DRG 42 ==
LOC: ER 08:10 → TELE 10:17 → MED 12-28 08:43 → TELE-TD 12-31 10:44
PROVIDERS: ADMIT Internal Medicine; ATTEND Internal Medicine
DX: G91.0 Communicating hydrocephalus (principal); N17.0 Acute kidney failure with tubular necrosis; G93.40 Encephalopathy, unspecified; I25.10 Atherosclerotic heart disease of native coronary artery without angina pectoris; I10 Essential (primary) hypertension; M19.90 Unspecified osteoarthritis, unspecified site; E78.5 Hyperlipidemia, unspecified; F41.9 Anxiety disorder, unspecified; Z96.659 Presence of unspecified artificial knee joint; G89.4 Chronic pain syndrome; F11.20 Opioid dependence, uncomplicated; F03.90 Unspecified dementia, unspecified severity, without behavioral disturbance, psychotic disturbance, mood disturbance, and anxiety; K58.9 Irritable bowel syndrome, unspecified; E66.9 Obesity, unspecified; E44.1 Mild protein-calorie malnutrition; E83.42 Hypomagnesemia; E87.6 Hypokalemia; G93.89 Other specified disorders of brain; I73.9 Peripheral vascular disease, unspecified; R26.9 Unspecified abnormalities of gait and mobility; Z68.34 Body mass index [BMI] 34.0-34.9, adult
CPT/HCPCS: 31720; 36415; 36600; 70450-TC; 70553-TC; 71045-TC; 80048-TC; 80053-TC; 80061-TC; 80076-TC; 80305; 81000-TC; 82140-TC; 82746; 82803-TC; 82962-TC; 83540-TC; 83690-TC; 83735-TC; 83880; 84100-TC; 84443-TC; 84484-TC; 85025-TC; 87086-TC; 93307-TC; 94799-TC; A4606; J2310; J2916; J3475; J7030; J7040; Z7610